=== PATIENT | male | born 1985 | race Hispanic/Latino ===

== ENCOUNTER 2024-02-24 17:00 | Inpatient (IN) | payer SELFPAY ==
[2024-02-24] MEDS ORDERED: traMADol HCl 50 MG TAB PO PRN (20:10)
[2024-02-24] MEDS ORDERED: Ondansetron ODT 4 MG TAB PO PRN (20:10)
[2024-02-24] MEDS ORDERED: Acetaminophen 325 MG TAB PO PRN (20:10)
[2024-02-24] MEDS ORDERED: Ketorolac Tromethamine 30 MG (1 mL) VIAL IVP PRN (20:10)
[2024-02-24] MEDS: Ondansetron PF 4 MG/2 ML Vial IVP PRN (20:43)
[2024-02-24] MEDS ORDERED: Lorazepam 1 MG TAB PO PRN (21:01)
[2024-02-24 21:06] LABS: ALT (SGPT) 29 U/L (8-55); AST (SGOT) 129 U/L (5-34); Albumin 2.3 g/dL (3.5-5.0); Alkaline Phosphatase 177 U/L (40-110); Bilirubin, Direct 3.2 mg/dL (0.1-0.3); Bilirubin, Total 4.8 mg/dL (0.2-1.2); Protein, Total 8.1 g/dL (6.0-8.3)
[2024-02-24] MEDS ORDERED: Electrolyte Replacement Protocol 1 EACH FS SCH (21:15)
[2024-02-24 21:42] LABS: #Basophils 0.03 10x3/uL (0.0-0.2); #Eosinophils Less than 0.03 10x3/uL (0.0-0.7); %Basophils 0.3 % (0.0-1.0); %Eosinophils 0.1 % (0.0-10.0); %Lymphocytes 5.7 % (21.0-51.0); %Monocytes 7.4 % (0.0-10.0); %Neutrophils 86.1 % (42.0-75.0); Hematocrit 24.5 % (42.0-52.0); Hemoglobin 7.3 g/dL (14.0-18.0); Mean Corpuscular HGB CONC 29.8 g/dL (32.0-36.0); Mean Corpuscular Hemoglobin 20.7 pg (27.0-31.0); Mean Corpuscular Volume 69.6 fL (78.0-98.0); Mean Platelet Volume 10.7 fL (7.4-10.4); Platelet Count 78 10x3/uL (130-400); RBC Distribution Width 18.2 % (11.5-14.5); Red Blood Cell (RBC) Count 3.52 mill/uL (4.70-6.10)
[2024-02-24] MEDS: Octreotide Acetate 1,250 MCG in Sodium Chloride 0.9% 250 ML 250 ML IVPB SCH (21:42)
[2024-02-24 21:49] LABS: Alcohol Less than 10.0 mg/dL (Less than 10)
[2024-02-24 21:51] LABS: ALT (SGPT) 29 U/L (8-55); AST (SGOT) 131 U/L (5-34); Albumin 2.2 g/dL (3.5-5.0); Alkaline Phosphatase 187 U/L (40-110); Anion Gap 15 mmol/L (10-20); BUN (Urea Nitrogen) 4 mg/dL (8.9-20.6); Bilirubin, Total 4.7 mg/dL (0.2-1.2); Calc. Creatinine Clearance 199 mL/min (70-130); Calcium 7.5 mg/dL (7.8-10.44); Carbon Dioxide 19 mmol/L (22-29); Chloride 104 mmol/L (98-107); Estimated GFR 121; Globulin 5.8 g/dL (2.4-3.5); Glucose 105 mg/dL (70-105); Potassium 3.3 mmol/L (3.5-5.1); Sodium 135 mmol/L (136-145)
[2024-02-24 21:52] LABS: INR-International Normal Ratio 2.2; PTT 41.3 sec (22.9-36.1); Prothrombin Time 24.4 sec (12.0-14.7)
[2024-02-24] MEDS: Lorazepam 1 MG TAB PO SCH (21:53)
[2024-02-24] MEDS: Pantoprazole 40 MG VIAL IVP SCH (21:53)
[2024-02-24] MEDS: Thiamine HCl 200 MG/2 ML VIAL SLOW IVP SCH (21:53)
[2024-02-24] MEDS: cefTRIAXone\\ROCEPHIN 2 GM in Sodium Chloride 0.9% 100 ML IVPB SCH (21:53)
[2024-02-24 22:00] LABS: Anisocytosis SLIGHT = 6-15 cells HPF (0-5); Hypochromia SLIGHT = 6-15 cells HPF (0-5); Platelet Adequacy Comment Platelets Decreased; Polychromasia MODERATE = 3-4 cells HPF (0-2); Target Cells SLIGHT = 2-5 cells HPF (0-1)
[2024-02-24] MEDS ORDERED: Dextrose 50% Abboject 50 ML SYRINGE SLOW IVP PRN (22:17)
[2024-02-24] MEDS ORDERED: Glucagon 1 MG/ML KIT IM PRN (22:17)
[2024-02-24] MEDS ORDERED: Dextrose 5% in Water 1,000 ML IV PRN (22:17)
[2024-02-24] MEDS: Potassium Chloride 20 MEQ in Premix 1 BAG IVPB SCH (22:40)
[2024-02-24] MEDS: Phytonadione 5 MG TAB PO SCH (22:40)
[2024-02-24] MEDS: methylPREDNISolone Sod Succ 40 MG VIAL IVP SCH (22:41)
[2024-02-24 22:58] LABS: Magnesium 1.6 mg/dL (1.6-2.6); Phosphorus 2.5 mg/dL (2.3-4.7)
[2024-02-25] MEDS: Magnesium 2 GM/50 ML(in water) 2 GM in Premix 1 BAG IVPB SCH (00:58)
[2024-02-25 04:43] LABS: Hematocrit 25.4 % (42.0-52.0); Hemoglobin 7.5 g/dL (14.0-18.0)
[2024-02-25 04:52] LABS: Bacteria/HPF None Seen HPF (None Seen); Bilirubin Negative (Negative); Blood, Urine Negative (Negative); CAUTI Indications for Culture Dysuria,urgency,freq; Clarity Clear (Clear); Glucose, Urine (Dipstick) Normal (Negative); Ketone, Urine 20 mg/dL (Negative); Leukocyte Negative Leu/uL (Negative); Nitrite Negative (Negative); Protein, Urine (Dipstick) Negative (Neg-Trace); RBC/HPF 0-3 HPF (0-3); Specific Gravity, Urine 1.014 (1.002-1.036); Squamous Epithelial None Seen HPF (0-3); WBC/HPF 0-3 HPF (0-3)
[2024-02-25 05:18] LABS: Urine Culture Reflex No No
[2024-02-25 05:20] LABS: Acetaminophen Less than 10 mcg/mL (Less than 10); Alcohol Less than 10.0 mg/dL (Less than 10); Salicylate Less than 8.0 mg/dL (Less than 8.0)
[2024-02-25 05:33] LABS: INR-International Normal Ratio 2.2; PTT 44.5 sec (22.9-36.1); Prothrombin Time 24.7 sec (12.0-14.7)
[2024-02-25 05:37] LABS: Lipase 30 U/L (8-78)
[2024-02-25 06:08] LABS: HBsAg Index 0.42 S/CO (0-0.99); HIV (1/2) Antibody/Antigen NONREACTIVE (NonReactive); HIV 1/2 INDEX 0.05 S/CO (<1.00); Hep A IgM AB NONREACTIVE (NonReactive); Hep A IgM S/CO 0.18 S/CO (0-0.79); Hep B Core IgM Index 0.09 S/CO (0-0.79); Hep B Surf Ag NONREACTIVE S/CO (NonReactive); Hep C IgG Ab NONREACTIVE S/CO (NonReactive); Hep C Index 0.18 S/CO (0-0.79); Hepatitis B Core IgM Abs NONREACTIVE S/CO (NonReactive)
[2024-02-25 07:38] LABS: Amphetamine Not Detected (NotDetected); Barbiturates Screen Not Detected (NotDetected); Benzodiazepine Screen Not Detected (NotDetected); Cocaine Metabolite Screen Not Detected (NotDetected); Methadone Not Detected (NotDetected); Methamphetamine Not Detected (NotDetected); Opiate Screen Not Detected (NotDetected); Oxycodone Screen Not Detected (NotDetected); Phencyclidine (PCP) Not Detected (NotDetected); THC/Cannabinoid Screen Not Detected (NotDetected); Tricyclic Screen Not Detected (NotDetected)
[2024-02-25] MEDS ORDERED: Pantoprazole 40 MG VIAL IVP SCH (09:00)
[2024-02-25] MEDS ORDERED: Enoxaparin 40 MG (0.4 mL) SYRINGE SC SCH (09:00)
[2024-02-25] MEDS: Folic Acid 1 MG TAB PO SCH (09:45)
[2024-02-25] MEDS: Multivit, Therapeutic 1 TAB PO SCH (09:45)
[2024-02-25 10:29] LABS: Hematocrit 26.3 % (42.0-52.0); Hemoglobin 7.7 g/dL (14.0-18.0)
[2024-02-25 15:47] LABS: Hematocrit 25.1 % (42.0-52.0); Hemoglobin 7.3 g/dL (14.0-18.0)
[2024-02-25] MEDS: Phytonadione 10 MG in Sodium Chloride 0.9% 50 ML IVPB SCH (17:39)
[2024-02-25] MEDS: Potassium Chloride 10 MEQ in Dextrose 5 % And 0.9 % NaCl 1,000 ML IV SCH (17:39)
[2024-02-25] MEDS ORDERED: Lorazepam 1 MG TAB PO PRN (21:01)
[2024-02-25 21:14] VITALS: BMI 32.5
[2024-02-26 05:21] LABS: #Basophils Less than 0.03 10x3/uL (0.0-0.2); %Basophils 0.2 % (0.0-1.0); %Eosinophils 1.2 % (0.0-10.0); %Monocytes 6.9 % (0.0-10.0); %Neutrophils 81.3 % (42.0-75.0); Hematocrit 30.4 % (42.0-52.0); Hemoglobin 8.6 g/dL (14.0-18.0); Mean Corpuscular HGB CONC 28.3 g/dL (32.0-36.0); Mean Corpuscular Volume 70.5 fL (78.0-98.0); Mean Platelet Volume 10.4 fL (7.4-10.4); Platelet Count 102 10x3/uL (130-400); RBC Distribution Width 18.4 % (11.5-14.5); Red Blood Cell (RBC) Count 4.31 mill/uL (4.70-6.10)
[2024-02-26 05:34] LABS: INR-International Normal Ratio 2.1; Prothrombin Time 23.5 sec (12.0-14.7)
[2024-02-26 05:42] LABS: ALT (SGPT) 25 U/L (8-55); AST (SGOT) 98 U/L (5-34); Albumin 2.2 g/dL (3.5-5.0); Alkaline Phosphatase 161 U/L (40-110); Anion Gap 11 mmol/L (10-20); BUN (Urea Nitrogen) 9 mg/dL (8.9-20.6); Bilirubin, Total 3.7 mg/dL (0.2-1.2); Calc. Creatinine Clearance 184 mL/min (70-130); Calcium 7.6 mg/dL (7.8-10.44); Carbon Dioxide 23 mmol/L (22-29); Chloride 103 mmol/L (98-107); Estimated GFR 118; Globulin 5.8 g/dL (2.4-3.5); Glucose 123 mg/dL (70-105); Iron 24 ug/dL (65-175); Iron Binding Capacity, Total 228 mcg/dL (261-462); Potassium 3.9 mmol/L (3.5-5.1); Sodium 133 mmol/L (136-145)
[2024-02-26 05:43] LABS: Immunoglob - G (Total IgG) 3604 mg/dL (540-1822); Immunoglob - M (Total IgM) 159 mg/dL (22-240)
[2024-02-26 06:03] VITALS: BMI 31.6
[2024-02-26] MEDS: Potassium Phosphate 15 MMOL in Sodium Chloride 0.9% 100 ML IVPB SCH (09:57)
[2024-02-26] MEDS ORDERED: PROPOFOL 20 ML ONE (12:08)
[2024-02-26] MEDS ORDERED: Lidocaine 1% PF 5 ML VIAL ONE (12:39)
[2024-02-26] MEDS ORDERED: Lorazepam 1 MG TAB PO PRN (21:01)
[2024-02-26] MEDS: Lorazepam 0.5 MG TAB PO SCH (21:05)
[2024-02-26] MEDS: FLU (Fluarix Triv) TS24-25(6MOS UP)/PF 45 MCG/0.5 ML Syringe IM ONE (22:34)
[2024-02-26] MEDS: Ondansetron ODT 4 MG TAB PO PRN (22:54)
[2024-02-27 10:24] LABS: INR-International Normal Ratio 2.1; PTT 41.1 sec (22.9-36.1); Prothrombin Time 23.8 sec (12.0-14.7)
[2024-02-27] MEDS: predniSONE 20 MG TAB PO SCH (14:29)
[2024-02-27] MEDS ORDERED: Lorazepam 0.5 MG TAB PO PRN (21:01)
[2024-02-28] MEDS ORDERED: predniSONE 20 MG TAB PO SCH (08:00)
[2024-02-28 09:24] LABS: #Basophils Less than 0.03 10x3/uL (0.0-0.2); #Eosinophils Less than 0.03 10x3/uL (0.0-0.7); %Basophils 0.1 % (0.0-1.0); %Lymphocytes 7.4 % (21.0-51.0); %Monocytes 7.8 % (0.0-10.0); ALT (SGPT) 27 U/L (8-55); AST (SGOT) 76 U/L (5-34); Albumin 1.9 g/dL (3.5-5.0); Alkaline Phosphatase 127 U/L (40-110); Anion Gap 7 mmol/L (10-20); BUN (Urea Nitrogen) 5 mg/dL (8.9-20.6); Bilirubin, Total 5.9 mg/dL (0.2-1.2); Calc. Creatinine Clearance 197 mL/min (70-130); Calcium 7.1 mg/dL (7.8-10.44); Carbon Dioxide 22 mmol/L (22-29); Chloride 105 mmol/L (98-107); Estimated GFR 121; Globulin 4.9 g/dL (2.4-3.5); Glucose 139 mg/dL (70-105); Hemoglobin 7.4 g/dL (14.0-18.0); Mean Corpuscular HGB CONC 29.6 g/dL (32.0-36.0); Mean Corpuscular Hemoglobin 20.8 pg (27.0-31.0); Mean Corpuscular Volume 70.4 fL (78.0-98.0); Mean Platelet Volume 11.2 fL (7.4-10.4); Phosphorus 1.7 mg/dL (2.3-4.7); Platelet Count 72 10x3/uL (130-400); Potassium 3.4 mmol/L (3.5-5.1); Protein, Total 6.8 g/dL (6.0-8.3); RBC Distribution Width 18.2 % (11.5-14.5); Red Blood Cell (RBC) Count 3.55 mill/uL (4.70-6.10); Sodium 131 mmol/L (136-145)
[2024-02-28] MEDS: prednisoLONE 10 MG ODT TAB PO SCH (09:24)
[2024-02-28 09:59] LABS: Anisocytosis SLIGHT = 6-15 cells HPF (0-5); Hypochromia SLIGHT = 6-15 cells HPF (0-5); Microcytosis SLIGHT = 6-15 cells HPF (0-5); Platelet Adequacy Comment Platelets Decreased; Poikilocytosis SLIGHT = 6-15 cells HPF (0-5); Polychromasia SLIGHT = 2-3 cells HPF (0-2); Target Cells SLIGHT = 2-5 cells HPF (0-1)
[2024-02-28] MEDS: Potassium Chloride 20 MEQ TAB PO SCH (11:29)
[2024-02-28] MEDS: prednisoLONE 15 MG/5 ML UDCUP PO SCH (11:29)
[2024-02-28] MEDS: PHOS-NAK 1 PKT PACK PO SCH (11:30)
[2024-02-29 08:58] VITALS: TEMP 97.9
[2024-02-29 11:45] VITALS: BP 141/89
[2024-03-01 07:28] LABS: ANA Symphony (Qualitative) Negative (Negative); ANA Symphony (Quantitative) 0.6 Ratio (< 0.7 Negative); EliA Vaculitis New Method **** NEW METHOD ****; Mitochondrial Ab 1.6 U/mL (<4 Negative); dsDNA IgG Antibody 3.4 IU/mL (<10 Negative)
== END 2024-02-29 12:45 | disposition home or self-care (01) | DRG 432 ==
LOC: T4-B 18:26 → IMCU/EMU 21:31 → OBSVTOIN 21:47 → 2NO 02-26 21:59
PROVIDERS: ADMIT Internal Medicine; ATTEND Internal Medicine
PROC: 06L38CZ Occlusion of Esophageal Vein with Extraluminal Device, Via Natural or Artificial Opening Endoscopic (ICD-10-PCS; principal; 2024-02-26)
DX: K70.31 Alcoholic cirrhosis of liver with ascites (principal); I85.11 Secondary esophageal varices with bleeding; K72.00 Acute and subacute hepatic failure without coma; D68.4 Acquired coagulation factor deficiency; D61.818 Other pancytopenia; E46 Unspecified protein-calorie malnutrition; K76.6 Portal hypertension; K70.11 Alcoholic hepatitis with ascites; I10 Essential (primary) hypertension; D69.6 Thrombocytopenia, unspecified; E87.6 Hypokalemia; E88.09 Other disorders of plasma-protein metabolism, not elsewhere classified; K31.89 Other diseases of stomach and duodenum; Z79.899 Other long term (current) drug therapy
CPT/HCPCS: 36415; 36416; 76705; 80053; 80074; 80076; 80306; 80307; 81001; 82103; 82105; 82390; 82550; 82728; 83516; 83540; 83550; 83690; 83735; 84100; 85014; 85018; 85025; 85610; 85730; 86015; 86038; 86225; 87040; 87389; 93306; 96374; G0378; J0696; J2354; J2405; J2470; J2704; J2919; J3411; J3430; J3475; J3480; J7042; J7050; J7510; J7512; Q0162